=== PATIENT | male | born 2005 | race Two or more races ===

== ENCOUNTER 2024-03-09 15:56 | Inpatient (IN) | payer OTHER ==
[2024-03-08 00:44] VITALS: BP 118/62; PULSE 46; RESP 17; TEMP 97.7; O2SAT 98
[~2024-03-09] VITALS: Ht 175.3 cm; Wt 73.7 kg
[2024-03-09 16:20] VITALS: PULSE 51; RESP 13; O2SAT 98
[2024-03-09 16:22] LABS: Basophils # (auto) 0 10 ^3/uL (0-0.2); Basophils % (auto) 0.5 % (0.0-2.0); Eosinophils # (auto) 0 10 ^3/uL (0-0.8); Eosinophils % (auto) 0.9 % (0.0-7.0); Hematocrit 47.9 % (41.0-53.0); Hemoglobin 15.8 g/dL (13.5-17.5); Lymphocytes # (auto) 1.6 10 ^3/uL (0.4-5.4); Lymphocytes % (auto) 34.7 % (10.0-50.0); Mean Corpuscular Hemoglobin 28.6 pg (28.0-32.0); Mean Corpuscular Hgb Conc. 33.1 g/dL (32.0-36.0); Mean Corpuscular Volume 86.5 fL (80.0-100.0); Monocytes # (auto) 0.5 10 ^3/uL (0-1.3); Monocytes % (auto) 10.4 % (0.0-12.0); Neutrophils # (auto) 2.5 10 ^3/uL (1.6-8.6); Neutrophils % (auto) 53.5 % (37.0-80.0); Nucleated Red Blood Cells % 0.2 %; Platelet Count (auto) 202 10^3/uL (140-450); Red Blood Cells 5.54 10^6/uL (4.5-5.90); Red Cell Distribution Width 12.7 % (11.8-14.3); White Blood Cell 4.6 10^3/uL (4.4-10.8)
--- NOTE | 2024-03-09 16:37 | ED.PDOC ---
SOB-HPI HPI Comments 19 year old male brought in by EMS from [facility] presents to the ED with chief complaint of chest pain. Patient reports that he was suffering from a viral illness last week with cough, nasal congestion, and fever when today he had experience substernal chest pain and a syncopal episode. Patient relays that he had a chest XR performed at [facility] and was found to have pneumonia and possible pericarditis. Patient states he was then transferred here for higher level of care. Patient denies any fever, chills, N/V/D, dizziness, abdominal pain, headache, or SOB. Chief Complaint: Chest Pain Time Seen by MD: 16:34 Reviewed notes: Nurses Notes, Medical Records Tech Notes, Medications, Allergies Information Source: Patient, Emergency Med Personnel Mode of Arrival: EMS Severity: Moderate Timing: Hours Duration: Since onset Context: At Rest PE Risk Factors: None History of: None Prehospital treatment: None Modifying Factors: Nothing Associated Signs and Symptoms: Cough, Nasal Congestion, Chest Pain, Other (Syncope) Quality: Aching Radiation: No Radiation Location: Substernal Past Medical History PAST MEDICAL HISTORY: Denies Surgical History: Denies all surgeries Family History Family History: Reviewed,noncontributory to illness Social History Smoker: Non-Smoker Alcohol: Denies ETOH Use Drugs: Denies Drug Use Lives In: Home Constitutional: denies: chills, diaphoresis, fatigue, fever, malaise, sweats, weakness, others EENTM: reports: nose congestion; denies: blurred vision, double vision, ear bleeding, ear discharge, ear drainage, ear pain, ear ringing, eye pain, eye redness, hearing loss, mouth pain, mouth swelling, nasal discharge, nose bleeding, nose pain, photophobia, tearing, throat pain, throat swelling, voice changes, others Respiratory: reports: cough; denies: hemoptysis, orthopnea, SOB at rest, shortness of breath, SOB with excertion, stridor, wheezing, others Cardiovascular: reports: chest pain, syncope; denies: dizzy spells, diaphoresis, Dyspnea on exertion, edema, irregular heart beat, left arm pain, l ightheadedness, palpitations, PND, others Gastrointestinal: denies: abdomen distended, abdominal pain, blood streaked bowels, constipated, diarrhea, dysphagia, difficulty swallowing, hematemesis, melena, nausea, poor appetite, poor fluid intake, rectal bleeding, rectal pain, vomiting, others Genitourinary: denies: burning, dysuria, flank pain, frequency, hematuria, incontinence, penile discharge, penile sore, pain, testicle pain, testicle swelling, urgency, others Neurological: denies: dizziness, fainting, headache, left sided numbness, left sided weakness, numbness, paresthesia, pre-existing deficit, right sided numbness, right sided weakness, seizure, speech problems, tingling, tremors, weakness, others Musculoskeletal: denies: back pain, gout, joint pain, joint swelling, muscle pain, muscle stiffness, neck pain, others Integumetry: denies: bruises, change in color, change in hair/nails, dryness, laceration, lesions, lumps, rash, wounds, others Allergic/Immunocompromised: denies: Difficulty Healing, Frequent Infections, Hives, Itching, others Hematologic/Lymphatic: denies: anemia, blood clots, easy bleeding, easy bruising, swollen glands, others Endocrine: denies: excessive hunger, excessive sweating, excessive thirst, excessive urination, flushing, intolerance to cold, intolerance to heat, unexplained weight gain, unexplained weight loss, others Psychiatric: denies: anxiety, bipolar disorder, depression, hopeless, panic disorder, schizophrenia, sleepless, suicidal, others All Other Systems: Reviewed and Negative Physical Exam General Appearance: No Apparent Distress, Normal HEENT: Normal ENT Inspection, PERRL/EOMI Neck: Full Range of Motion, Non-Tender, Normal, Normal Inspection Respiratory: Chest Non-Tender, Lungs Clear, No Accessory Muscle Use, No Respiratory Distress, Normal Breath Sounds Cardiovascular: No Edema, No JVD, No Murmur, No Gallop, Normal Peripheral Pulses, Regular Rate/Rhythm Breast Exam: Deferred Gastrointestinal: No Organomegaly, Non Tender, No Pulsatile Mass, Normal Bowel Sounds, Soft Genitalia: Deferred Pelvic: Deferred Rectal: Deferred Extremities: No calf tenderness, Normal capillary refill, Normal inspection, Normal range of motion, Non-tender, No pedal edema Musculoskeletal : Apperance: Normal Neurologic: Alert, child care associate II-XII nml as Tested, No Motor Deficits, Normal Affect, Normal Mood, No Sensory Deficits Cerebellar Function: Normal Reflexes: Normal Skin: Dry, Normal Color, Warm Lymphatic: No Adenopathy Was a procedure done? Was a procedure done?: No Differential Dx Differential Diagnosis: Hypertension, Pneumonia, Sinusitis X-Ray, Labs, Meds, VS Vital Signs Date Time Temp Pulse Resp B/P (MAP) Pulse Ox O2 Delivery O2 Flow Rate FiO2 03/09/24 16:54 51 03/09/24 16:20 98.7 51 13 117/69 (85) 98 98.7 03/09/24 16:20 51 13 98 Room Air* 0 21 03/09/24 15:59 57 03/09/24 15:56 98.7 65 18 117/68 (84) 98 03/09/24 15:56 Room Air* 0 21 Lab Test 03/09/24 17:00 03/09/24 16:07 Range/Units Sodium Level 140 136-145 mmol/L Potassium Level 4.6 3.5-5.1 mmol/L Chloride Level 107 98-107 mmol/L Carbon Dioxide Level 28 20-31 mmol/L Anion Gap 5 5-15 Blood Urea Nitrogen 10 9-23 mg/dL Creatinine 1.10 0.700-1.30 mg/dL Glomerular Filtration Rate Calc 98 >90 mL/min BUN/Creatinine Ratio 9.1 L 10.0-20.0 Serum Glucose 83 74-106 mg/dL Calcium Level 9.9 8.7-10.4 mg/dL White Blood Count 4.6 4.4-10.8 10^3/uL Red Blood Count 5.54 4.5-5.90 10^6/uL Hemoglobin 15.8 13.5-17.5 g/dL Hematocrit 47.9 41.0-53.0 % Mean Corpuscular Volume 86.5 80.0-100.0 fL Mean Corpuscular Hemoglobin 28.6 28.0-32.0 pg Mean Corpuscular Hemoglobin Concent 33.1 32.0-36.0 g/dL Red Cell Distribution Width 12.7 11.8-14.3 % Platelet Count 202 140-450 10^3/uL Mean Platelet Volume 7.0 6.9-10.8 fL Neutrophils (%) (Auto) 53.5 37.0-80.0 % Lymphocytes (%) (Auto) 34.7 10.0-50.0 % Monocytes (%) (Auto) 10.4 0.0-12.0 % Eosinophils (%) (Auto) 0.9 0.0-7.0 % Basophils (%) (Auto) 0.5 0.0-2.0 % Neutrophils # (Auto) 2.5 1.6-8.6 10 ^3/uL Lymphocytes # (Auto) 1.6 0.4-5.4 10 ^3/uL Monocytes # (Auto) 0.5 0-1.3 10 ^3/uL Eosinophils # (Auto) 0 0-0.8 10 ^3/uL Basophils # (Auto) 0 0-0.2 10 ^3/uL Nucleated Red Blood Cells 0.2 % Erythrocyte Sedimentation Rate Pending Troponin I High Sensitivity < 3 L </=54 ng/L C-Reactive Protein High Sensitivity < 0.02 <1.0 mg/dL Current Medications Medications (Trade) Dose Ordered Sig/Sky Route Start Time Stop Time Status Last Admin Colchicine (Colcrys) 1.2 mg ONCE ONCE PO 03/09/24 17:00 03/09/24 17:02 DC 03/09/24 17:17 Ketorolac Tromethamine (Toradol Injection) 15 mg ONCE ONCE IV 03/09/24 17:00 03/09/24 17:02 DC 03/09/24 17:17 Chest XR: FINDINGS: Lines and Tubes: None Lungs: Right perihilar fullness which may be from slight image rotation . Pleura: No effusion. No pneumothorax. Cardiomediastinal contours: Unremarkable Bones: No acute osseous abnormality. IMPRESSION: Right perihilar fullness which may be from slight image rotation. CT may be considered for further evaluation if clinically indicated. Images Reviewed?: Images reviewed and evaluated by me Time of 1ST Reevaluation: 17:34 Reevaluation 1ST: Unchanged Patient Education/Counseling: Diagnosis, Treatment Family Education/Counseling: No Family Present Departure 1 Departure Time of Disposition: 18:09 (Patient presented with chest pain that was concerning for possible STEMI, ACS, PE, Pneumonia, Muscle Strain, COPD, Dissection. Data: 1. I ordered and reviewed the result of at least 3 labs incl uding a CBC, BMP, and Troponin. 2. I independently interpreted the following tests: EKG which shows concern for pericarditis versus myocarditis and Chest X- ray which shows some collection.Risk:This patient has a high risk of morbidity due to further diagnostic testing or treatment and may suffer from an acute cardiac or respiratory disorder. Workup reveals concern for chest pain and patient should be admitted for further workup and possible expert consultation. ) Impression: Primary Impression: Chest pain Qualified Codes: R07.9 - Chest pain, unspecified Additional Impression: Weakness Disposition: ADMITTED INPATIENT Admit to: Med Surg Condition: Serious Critical Care Note Critical Care Time?: Yes Critical care comment: Active chest pain Authorized and Performed by: Jr Contreras MD Total critical care time: Approximately 38 minutes Due to a high probability of clinically significant, life threatening dete rioration, the patient required my highest level of preparedness to intervene emergently and I personally spent this critical care time directly and personally managing the patient. This critical care time included obtaining a history; examining the patient; pulse oximetry; ordering and review of studies; arranging urgent treatment with development of a management plan; evaluation of patient's response to treatment; frequent reassessment; and, discussions with other providers. This critical care time was performed to assess and manage the high probability of imminent, life-threatening deterioration that could result in multi-organ f ailure. It was exclusive of separately billable procedures and treating other patients and teaching time. Please see my other sections and the rest of the note for further information on patient assessment and treatment. Stability Stability form required: No Heart Score Heart Score: Heart Score Response (Comments) Value History N/A 0 EKG N/A 0 Age N/A 0 Risk Factors N/A 0 Troponin N/A 0 Total 0 I personally scribed for JR CONTRERAS MD ([email or web address]) on 03/09/24 at 16:37. Electronically submitted by Sam Lloyd ([email or web address]). I personally scribed for JR CONTRERAS MD ([email or web address]) on 03/09/24 at 17:00. Electronically submitted by Sam Lloyd ([email or web address]). JR CONTRERAS MD Mar 09, 2024 16:37
--- NOTE | 2024-03-09 16:52 | DVH ---
CHEST RADIOGRAPH Indication:chest pain and sob Technique: Single frontal view of the chest was obtained Comparison: None FINDINGS: Lines and Tubes: None Lungs: Right perihilar fullness which may be from slight image rotation . Pleura: No effusion. No pneumothorax. Cardiomediastinal contours: Unremarkable Bones: No acute osseous abnormality. IMPRESSION: Right perihilar fullness which may be from slight image rotation. CT may be considered for further ev aluation if clinically indicated.
[2024-03-09 17:16] LABS: Chloride 107 mmol/L (98-107); Sodium 140 mmol/L (136-145)
[2024-03-09] MEDS: KETOROLAC TROMETH 30 MG/ML 1ML VIAL IV ONE (17:17)
[2024-03-09] MEDS: COLCHICINE 0.6 MG CAP PO ONE (17:17)
[2024-03-09 17:19] LABS: Anion Gap 5 (5-15); Calcium 9.9 mg/dL (8.7-10.4); Carbon Dioxide 28 mmol/L (20-31)
[2024-03-09 17:20] LABS: Potassium 4.6 mmol/L (3.5-5.1)
[2024-03-09 17:24] LABS: Glucose 83 mg/dL (74-106)
[2024-03-09 17:26] LABS: BUN/Creatinine Ratio 9.1 (10.0-20.0); Blood Urea Nitrogen 10 mg/dL (9-23)
[2024-03-09 18:15] LABS: Erythrocyte Sedimentation Rate 2 mm/hr (0-20)
[2024-03-09 19:30] VITALS: PULSE 54; RESP 14; O2SAT 97
--- NOTE | 2024-03-09 19:39 | ECG ---
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
[2024-03-09] MEDS ORDERED: HYDROcodone-ACET 5/325MG TAB PO PRN (21:30)
[2024-03-09] MEDS ORDERED: ACETAMINOPHEN 325 MG TAB PO PRN (21:30)
[2024-03-09] MEDS ORDERED: ONDANSETRON HCL 4 MG/2 ML VIAL IV PRN (21:30)
--- NOTE | 2024-03-09 22:16 | DVHHPRES ---
History of Present Illness Resident Creating Document: PATRICA RAMOS RESIDENT History of Present Illness This is a 19 year old male brought in by EMS from [facility] presented to the ED with chief complaint of chest pain. Patient reports that he was suffering from a viral illness last week with cough, nasal congestion, and fever . Yesterday he started having substernal chest pain and could not able to breath and had a syncopal episode with loss of consciousness less than 45 seconds according to the without any incontinence. He went to the ER and had a chest XR performed at [facility] and was found to have pneumonia and possible pericarditis. Patient states he was then transferred here for higher level of care. Patient denies any fever, chills, N/V/D, dizziness, abdominal pain, headache. Past Medical History No significant past medical history Past Surgical History None Family History No significant family history of heart disease, cancer or any other genetic disease Smoke: No ALCOHOL: none Drugs: None Lives: with Family Review of Systems Constitutional: No: Fever, Chills, Sweats, Weakness, Malaise, Other Eyes: No: Pain, Vision change, Conjunctivae inflammation, Eyelid inflammation, Other, Redness ENT: No: Ear pain, Ear discharge, Nose pain, Nose discharge, Nose congestion, Mouth pain, Mouth swelling, Throat pain, Throat swelling, Other Respiratory: Shortness of breath; No: Cough, Dry, SOB with excertion, Wheezing, Hemoptysis, Pleuritic Pain, Sputum, Wheezing, Other Cardiovascular: Chest Pain, Lt Headedness; No: Palpitations, Orthopnea, Paroxysmal Noc. Dyspnea, Edema, Other Gastrointestinal: No: Nausea, Vomiting, Abdominal Pain, Diarrhea, Constipation, Melena, Hematochezia, Other Genitourinary: No Dysuria, No Frequency, No Incontinence, No Hematuria, No Retention, No Other Musculoskeletal: No: other, neck pain, shoulder pain, arm pain, back pain, hand pain, leg pain, foot pain Skin: No: Rash, Lesions, Jaundice, Bruising, Other Neurological: No: Weakness, Numbness, Incoordination, Change in speech, Confusion, Seizures, Other Allergies: Coded Allergies: Lactose Intolerance (GI) (Verified Allergy, Unknown, 03/10/24) Medications Current Medications Medications Dose Ordered Sig/Sky Route Start Time Stop Time Status Last Admin Dose Admin Sodium Chloride 10 ml Q8HR IV 10/29/24 22:00 Acetaminophen 325 mg Q4HP PRN PO 03/09/24 21:30 Acetaminophen/ Hydrocodone Bitart 1 tab Q4HP PRN PO 03/09/24 21:30 Ondansetron HCl 4 mg Q4HP PRN IV 03/09/24 21:30 Nitroglycerin 0.4 mg Q5MINP PRN SL 03/09/24 21:30 Morphine Sulfate 2 mg Q30M PRN IV 03/09/24 21:30 Exam Vital Signs Vital Signs Date Time Temp Pulse Resp B/P (MAP) Pulse Ox O2 Delivery O2 Flow Rate FiO2 03/09/24 19:30 97.8 54 14 123/61 (81) 97 97.8 03/09/24 19:30 Room Air* 0 21 General Appearance: Alert, Oriented X3, Cooperative, mild distress HEENT: Atraumatic, PERRLA, EOMI, Mucous membr. moist/pink Respiratory: Clear to auscultation, Normal air movement Cardiovascular: Regular rate, Normal S1, Normal S2, No murmurs Abdominal: Normal bowel sounds, Soft, No tenderness, No hepatospenomegaly, No masses Extremities: No clubbing, No cyanosis, No edema, Normal pulses, No tenderness/swelling Skin: No rashes, No breakdown, No significant lesion Neuro: Normal gait, Normal speech, Strength at 5/5 X4 ext, Normal tone, Sensation intact Psych/Mental Status: Mental status NL, Mood NL Labs/Xrays Labs Test 03/09/24 21:47 03/09/24 17:00 03/09/24 16:07 Range/Units Sodium Level 140 136-145 mmol/L Potassium Level 4.6 3.5-5.1 mmol/L Chloride Level 107 98-107 mmol/L Carbon Dioxide Level 28 20-31 mmol/L Anion Gap 5 5-15 Blood Urea Nitrogen 10 9-23 mg/dL Creatinine 1.10 0.700-1.30 mg/dL Glomerular Filtration Rate Calc 98 >90 mL/min BUN/Creatinine Ratio 9.1 L 10.0-20.0 Serum Glucose 83 74-106 mg/dL Calcium Level 9.9 8.7-10.4 mg/dL White Blood Count 4.6 4.4-10.8 10^3/uL Red Blood Count 5.54 4.5-5.90 10^6/uL Hemoglobin 15.8 13.5-17.5 g/dL Hematocrit 47.9 41.0-53.0 % Mean Corpuscular Volume 86.5 80.0-100.0 fL Mean Corpuscular Hemoglobin 28.6 28.0-32.0 pg Mean Corpuscular Hemoglobin Concent 33.1 32.0-36.0 g/dL Red Cell Distribution Width 12.7 11.8-14.3 % Platelet Count 202 140-450 10^3/uL Mean Platelet Volume 7.0 6.9-10.8 fL Neutrophils (%) (Auto) 53.5 37.0-80.0 % Lymphocytes (%) (Auto) 34.7 10.0-50.0 % Monocytes (%) (Auto) 10.4 0.0-12.0 % Eosinophils (%) (Auto) 0.9 0.0-7.0 % Basophils (%) (Auto) 0.5 0.0-2.0 % Neutrophils # (Auto) 2.5 1.6-8.6 10 ^3/uL Lymphocytes # (Auto) 1.6 0.4-5.4 10 ^3/uL Monocytes # (Auto) 0.5 0-1.3 10 ^3/uL Eosinophils # (Auto) 0 0-0.8 10 ^3/uL Basophils # (Auto) 0 0-0.2 10 ^3/uL Nucleated Red Blood Cells 0.2 % Erythrocyte Sedimentation Rate 2 0-20 mm/hr C-Reactive Protein High Sensitivity < 0.02 <1.0 mg/dL Assessment/Plan Assessment/Plan Assessment and plan: # Chest pain rule out ACS - Admitted the patient in telemetry - EKG revealed widespread ST elevation and troponins are unremarkable - Ordered echo # Chest pain likely due to pericarditis, rule out pneumonia - Recent history of flu-like illness and EKG revealed widespread ST elevation - CRP and ESR are normal - Colchicine 0.6 mg p.o. b.i.d. - Ordered CT scan of the chest without contrast # Vitamin D deficiency - Vitamin D 93114 units Q 7D Goal of care discussed with the patient for more than 17 minutes full code Plan of treatment discussed with Dr. Carter Plan discussed with: Patient, Other My Orders Orders - PATRICA RAMOS RESIDENT Procedure Category Date Status Time Admit ADMIT 03/09/24 Transmitted 21:27 Allergies TALI 03/09/24 In Process 21:27 Code Status CODE 03/09/24 Transmitted 21:27 Sodium Chloride Lock PHA 03/09/24 In Process (Saline Lock Ns) 22:00 Oxygen Per Hour RT 03/09/24 Transmitted 21:27 Acetaminophen Tablet PHA 03/09/24 In Process (Tylenol Tablet) 21:30 Hydrocodone-Acet PHA 03/09/24 In Process 5/325mg Tab (Hamer 21:30 Ondansetron Hcl PHA 03/09/24 In Process (Zofran) 21:30 Complete Blood Count LAB 03/10/24 Verified 04:00 Comprehensive LAB 03/10/24 Verified Metabolic Panel 04:00 Echo 2d Mode Cardiac US 03/09/24 Logged DOP 21:27 Nitroglycerin PHA 03/09/24 In Process Sublingual (Ntrostat 21:30 Morphine Sulfate PHA 03/09/24 In Process Injection 21:30 Oxygen By Nasal RT 03/09/24 Transmitted Cannula 21:27 Stat Ekg For Chest TALI 03/09/24 In Process Pain 21:27 Notify Md Of Changes TALI 03/09/24 In Process From Base 21:27 Wardrobe Assistant For BANNER 03/09/24 In Process 24 Hours 21:27 Emergency Dysrhythmia BANNER 03/09/24 In Process Protocol 21:27 Rhythm Strips Once BANNER 03/09/24 In Process Every Shift 21:27 Thyroid Stimulating LAB 03/09/24 Verified Hormone 22:14 Urinalysis LAB 03/09/24 Verified 22:14 Drug Screen LAB 03/09/24 Verified 22:14 Vitamin B12 LAB 03/09/24 Verified 22:14 Vitamin D, 25-Hydroxy LAB 03/09/24 Verified 22:14 Date of Service: Mar 09, 2024 Billing Provider: PRANAY CARTER MD Common Visit Codes: [id number] INP/OBS CARE (HIGH) PATRICA RAMOS RESIDENT Mar 09, 2024 22:15 PRANAY CARTER MD Mar 10, 2024 08:59
[2024-03-09] MEDS: SODIUM CHLOR 0.9% PF (SALINE LOCK) 10ML VIAL/SYR IV SCH (23:35)
[2024-03-10] VITALS (10 sets, daily range): BP systolic 105–118; BP diastolic 47–72; PULSE 46–82; RESP 15–20; TEMP 97.6–97.8; O2SAT 96–99
[2024-03-10 03:04] LABS: Urine Bacteria None Seen /hpf (None Seen)
[2024-03-10 03:26] LABS: Amphetamine Screen, Urine Neg (NEGATIVE); Barbiturate Scree,Urine Neg (NEGATIVE); Benzodiazephine Screen, Urine Neg (NEGATIVE); Cannabinoid Screen, Urine Pos (NEGATIVE); Cocaine Screen, Urine Neg (NEGATIVE); Opiate Scree,Urine Neg (NEGATIVE); Phencyclidine Screen, Urine Neg (NEGATIVE)
[2024-03-10 03:36] LABS: Urine Blood Negative /uL (Negative); Urine Clarity Clear (Clear); Urine Color Yellow (Yellow); Urine Mucus FEW (None Seen); Urine Protein, UAD TRACE (Negative); Urine Specific Gravity 1.036 (1.001-1.035); Urine Urobilinogen 3 mg/dL (Negative); Urine WBC 1 /hpf (0 - 3)
[2024-03-10 03:53] LABS: COVID19 ANTIGEN SOFIA FIA NEGATIVE (NEGATIVE)
[2024-03-10 03:54] LABS: Rapid Influenza A Negative (Negative); Rapid Influenza B Negative (Negative)
[2024-03-10 05:38] LABS: Alanine Aminotransferase 16 U/L (7-40); Albumin 3.8 g/dL (3.2-4.8); Alkaline Phosphatase 63 U/L (46-116); Anion Gap 7 (5-15); Aspartate Aminotransferase 10 U/L (13-40); BUN/Creatinine Ratio 12.3 (10.0-20.0); Bilirubin, Total 0.8 mg/dL (0.2-1.0); Blood Urea Nitrogen 13 mg/dL (9-23); Calcium 9.6 mg/dL (8.7-10.4); Carbon Dioxide 25 mmol/L (20-31); Chloride 110 mmol/L (98-107); Glucose 87 mg/dL (74-106); Potassium 3.8 mmol/L (3.5-5.1); Sodium 142 mmol/L (136-145); Total Protein 6.4 g/dL (5.7-8.2)
[2024-03-10 05:43] LABS: Basophils # (auto) 0 10 ^3/uL (0-0.2); Basophils % (auto) 0.4 % (0.0-2.0); Eosinophils # (auto) 0 10 ^3/uL (0-0.8); Eosinophils % (auto) 0.8 % (0.0-7.0); Hematocrit 44.5 % (41.0-53.0); Hemoglobin 14.3 g/dL (13.5-17.5); Lymphocytes # (auto) 2.5 10 ^3/uL (0.4-5.4); Lymphocytes % (auto) 47.3 % (10.0-50.0); Mean Corpuscular Hgb Conc. 32.2 g/dL (32.0-36.0); Mean Corpuscular Volume 86.9 fL (80.0-100.0); Monocytes # (auto) 0.5 10 ^3/uL (0-1.3); Monocytes % (auto) 9.5 % (0.0-12.0); Neutrophils # (auto) 2.2 10 ^3/uL (1.6-8.6); Nucleated Red Blood Cells % 0.1 %; Platelet Count (auto) 206 10^3/uL (140-450); Red Blood Cells 5.12 10^6/uL (4.5-5.90); Red Cell Distribution Width 12.3 % (11.8-14.3); White Blood Cell 5.3 10^3/uL (4.4-10.8)
--- NOTE | 2024-03-10 07:11 | ECG ---
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
--- NOTE | 2024-03-10 08:57 | DVH ---
Procedure: CT CHEST WITHOUT CONTRAST Reason for study/Clinical History: Pneumonia Comparison Study: None available at time of dictation. Exam Date: 03/10/2024 08:23 AM TECHNIQUE: Multidetector CT of the chest was performed from the lung apices to the upper abdomen with out the use of intravenous contract. Axial, coronal and sagittal multiplanar reformats were performed . Radiation Dose Information: CT Dose: CTDI volume is 6.52 mGy. Dose-length product is 249.08 mGy*cm The dose indicators for CT are the volume Computed Tomography (CT) Dose Index (CTDIvol) and the Dose Length Product (DLP), and are measured in units of mGy and mGy-cm, respectively. These indicators are not patient dose, but values generated from the CT scanner acquisition factors. The report includes radiation exposure data for exposures received during this examination. FINDINGS: Lower neck: Normal thyroid. Lungs: No focal consolidation, pleural effusion or pneumothorax. Heart/Vascular Structures: Normal heart size. No pericardial effusion. Lymph Nodes: No adenopathy Pleura: No pleural effusion or significant pneumothorax. Musculoskeletal: Levoscoliosis of the upper thoracic spine Soft tissues: Normal. Upper abdomen: Limited portions of the upper abdomen are unremarkable. IMPRESSION: 1. No acute intrathoracic abnormality. Radiation optimization: All CT scans at this facility use at least one of these dose optimization miguel hniques: automated exposure control mA and/or kV adjustment per patient size (includes targeted exam s where dose is matched to clinical indication) or iterative reconstruction. HS:Y
[2024-03-10] MEDS ORDERED: ERGOCALCIFEROL 50,000 UNIT(1.25MG) CAP PO SCH (10:00)
[2024-03-10] MEDS: ERGOCALCIFEROL 50,000 UNIT(1.25MG) CAP PO SCH ×2 (11:00)
[2024-03-10] MEDS: COLCHICINE 0.6 MG CAP PO SCH (11:00)
[2024-03-10] MEDS: PANTOPRAZOLE 40 MG TAB PO ONE (16:05)
--- NOTE | 2024-03-10 19:00 | DVHPNRES ---
Progress Note Date Seen: Mar 10, 2024 Resident Creating Document: ANGELICA JOSHI FERMIN Has the PT tested + for MRSA If YES, has PT been informed?: No Medical Necessity Reason Pt with a Central, PICC or Fol: No Subjective Review of Systems This is a 19 year old male brought in by EMS from [facility] presented to the ED with chief complaint of chest pain. Patient reports that he was suffering from a viral illness last week with cough, nasal congestion, and fever . Yesterday he started having substernal chest pain and could not able to breath and had a syncopal episode with loss of consciousness less than 45 seconds according to the without any incontinence. He went to the ER and had a chest XR performed at [facility] and was found to have pneumonia and possible pericarditis. Patient states he was then transferred here for higher level of care. Patient denies any fever, chills, N/V/D, dizziness, abdominal pain, headache. PMHx: Not significant PSHx: Outside Family history: Not significant Social history: Lives at home with thiamine, denies smoking, drink occasionally and denies any other drug use Home medication: Nil Allergic history: Lactulose intolerance Patient seen and examined at the bedside. Patient is feeling better since admission. Patient has mild chest pain which increased on the lying and decreased upon sitting. Patient reports: No new complaints, Feels better Changes from previous H/P or p: Changes Objective vital signs Vital Sign Date Time Temp Pulse Resp B/P (MAP) Pulse Ox O2 Delivery O2 Flow Rate FiO2 03/10/24 16:56 97.7 54 16 105/54 (71) 98 97.7 03/10/24 08:20 Room Air* 0 21 Total Intake and Output 03/09/24 03/09/24 03/10/24 15:00 23:00 07:00 Intake Total 225 ml Balance 225 ml medications Current Medications Medications Dose Ordered Sig/Sky Route Start Time Stop Time Status Last Admin Dose Admin Sodium Chloride 10 ml Q8HR IV 03/09/24 22:00 03/10/24 14:00 10 ML Acetaminophen 325 mg Q4HP PRN PO 03/09/24 21:30 Acetaminophen/ Hydrocodone Bitart 1 tab Q4HP PRN PO 03/09/24 21:30 Ondansetron HCl 4 mg Q4HP PRN IV 03/09/24 21:30 Nitroglycerin 0.4 mg Q5MINP PRN SL 03/09/24 21:30 Morphine Sulfate 2 mg Q30M PRN IV 03/09/24 21:30 Colchicine 0.6 mg Q12HR PO 03/10/24 10:00 03/10/24 11:00 0.6 MG Ergocalciferol 50,000 unit Q7D PO 03/10/24 08:30 Ibuprofen 600 mg TID PO 03/10/24 22:00 Pantoprazole Sodium 40 mg DAILY@0600 PO 03/11/24 06:00 Examination General Appearance: Alert, Oriented X3, Cooperative, No acute distress HEENT: Atraumatic, PERRLA, EOMI, Mucous membrane moist/pink Respiratory: Clear to auscultation, Normal air movement Cardiovascular: Regular rate, Normal S1, Normal S2, No murmurs, no chest wall tenderness Abdominal: Normal bowel sounds, Soft, No tenderness, No hepatospenomegaly, No masses Extremities: No clubbing, No cyanosis, No edema, Normal pulses, No tenderness/swelling Skin: No rashes, No breakdown, No significant lesion laboratory and microbiology Laboratory Tests 03/10/24 04:38 Test 03/10/24 04:38 Range/Units Serum Glucose 87 74-106 mg/dL Microbiology Date/Time Source Procedure Growth Status 03/10/24 01:30 Nose MRSA Screen - Final Complete Labs and/or images reviewed: Labs reviewed by me, Image(s) reviewed by me Problem List/Assessment/Plan Problem List/Assessment/Plan Chest pain, rule out ACS ?Pericarditis EKG shows sinus bradycardia Troponin I is within normal limits Echocardiogram Telemetry CRP and ESR are normal Colchicine 0.6 mg p.o. b.i.d. Ibuprofen 600 mg t.i.d. Vitamin-D deficiency Supplement Hyperchloremia Monitoring Vitamin B12 deficiency Supplement Diet Regular DVT prophylaxis Patient is ambulatory, no anticoagulant is required Peptic ulcer prevention Patient is on NSAIDs Protonix 40 mg daily Code status Full Code Case discussed with Dr. Carter Plan discussed with: Patient Date of Service: Mar 10, 2024 Billing Provider: PRANAY CARTER MD Common Visit Codes: [id number] INP/OBS CARE(HIGH) VEGAKAYLAVEGA WALLACEDorothy RESDIENT Mar 10, 2024 19:00 PRANAY CARTER MD Mar 11, 2024 08:58
[2024-03-10] MEDS: IBUPROFEN 600 MG TAB PO SCH (22:04)
[2024-03-11] VITALS (7 sets, daily range): BP systolic 113–131; BP diastolic 57–76; PULSE 51–98; RESP 18–19; TEMP 97.5–98.2; O2SAT 92–98
[2024-03-11] MEDS: MORPHINE SULFATE INJ 2 MG/ml SYRG IV PRN (05:17)
[2024-03-11] MEDS: ASPirin 325 MG TAB PO ONE (06:10)
[2024-03-11] MEDS: NITROGLYCERIN 0.4 MG SL TAB SL PRN (06:13)
[2024-03-11] MEDS: PANTOPRAZOLE 40 MG TAB PO SCH (06:51)
[2024-03-11 07:01] LABS: Basophils # (auto) 0 10 ^3/uL (0-0.2); Basophils % (auto) 0.4 % (0.0-2.0); Eosinophils # (auto) 0 10 ^3/uL (0-0.8); Eosinophils % (auto) 0.7 % (0.0-7.0); Hematocrit 45.8 % (41.0-53.0); Hemoglobin 15.1 g/dL (13.5-17.5); Lymphocytes # (auto) 2.2 10 ^3/uL (0.4-5.4); Lymphocytes % (auto) 41.7 % (10.0-50.0); Mean Corpuscular Hemoglobin 28.6 pg (28.0-32.0); Mean Corpuscular Hgb Conc. 33.1 g/dL (32.0-36.0); Mean Corpuscular Volume 86.5 fL (80.0-100.0); Monocytes # (auto) 0.5 10 ^3/uL (0-1.3); Monocytes % (auto) 9.2 % (0.0-12.0); Neutrophils # (auto) 2.5 10 ^3/uL (1.6-8.6); Nucleated Red Blood Cells % 0.3 %; Platelet Count (auto) 198 10^3/uL (140-450); Red Blood Cells 5.29 10^6/uL (4.5-5.90); Red Cell Distribution Width 12.1 % (11.8-14.3); White Blood Cell 5.2 10^3/uL (4.4-10.8)
[2024-03-11 07:19] LABS: Alanine Aminotransferase 19 U/L (7-40); Alkaline Phosphatase 69 U/L (46-116); Anion Gap 9 (5-15); Aspartate Aminotransferase 15 U/L (13-40); BUN/Creatinine Ratio 13.8 (10.0-20.0); Bilirubin, Total 0.9 mg/dL (0.2-1.0); Blood Urea Nitrogen 15 mg/dL (9-23); Calcium 9.7 mg/dL (8.7-10.4); Carbon Dioxide 26 mmol/L (20-31); Chloride 107 mmol/L (98-107); Glucose 83 mg/dL (74-106); Potassium 3.9 mmol/L (3.5-5.1); Sodium 142 mmol/L (136-145)
[2024-03-11 07:20] LABS: Total Protein 6.7 g/dL (5.7-8.2)
--- NOTE | 2024-03-11 10:42 | ECG ---
[facility] Test Date: 2024-03-09 Test Time: 16:54:47 Pat Name: ALTON HOLCOMB Department: ER Room: 0286T B Gender: M [employer] Technician: ALEJANDRO : 2005 Requested By: JR JOYA Order Number: [id number] Reading MD: Marlo Emery Measurements Intervals [place] Rate: 51 P: 27 MT: 175 QRS: 257 QRSD: 88 T: 40 QT: 403 QTc: 372 Interpretive Statements Sinus rhythm Right superior axis Lateral infarct, acute (LAD) Probable anteroseptal infarct, old ST elevation, consider inferior injury Baseline wander in lead(s) V1 Electronically Signed On 03-11-2024 14:55:41 PDT by Marlo Emery Please click the below link to view image of tracing.
--- NOTE | 2024-03-11 11:04 | DVHINCON2 ---
Date Seen: Mar 11, 2024 Referring Physician MD Rubio resident Reason for Consultation Symptomatic bradycardia History of Present Illness This is a 19-year-old male patient who presents to the emergency room with chief complaint of syncopal episode. The patient reports that approximately two weeks ago he was sick with a viral illness. A few days after that he began experiencing chest pain which he describes as provoked by deep inhalation, sharp in nature, left-sided and nonradiating. Approximately five days ago, he reports that while he was in the shower he experienced a syncopal episode. He states that he began feeling hot and lightheaded and the next thing he knew he was being woken up by his girlfriend. The patient reports he went to [facility] where he was diagnosed with pericarditis and pneumonia and was told to follow up with a grease monkey in the outpatient setting. The patient then went back to [facility] on 03/09/24 and was subsequently transported to this facility. Cardiology is now being consulted for symptomatic bradycardia. Initial twelve lead electrocardiogram reveals normal sinus bradycardia with peaked T-waves in anterolateral leads. No AV blocks or pauses noted on electrocardiogram. Serial troponin levels have been negative. The patient denies any past medical history. Past Medical History Denies Past Surgical History Denies Family History: Patient reports no known family medical history. Family History Family history reviewed. Social History Denies the use of tobacco, alcohol or illicit drugs. Toxicology screen positive for cannabinoids. Allergies: Coded Allergies: Lactose Intolerance (GI) (Verified Allergy, Unknown, 03/10/24) Home Meds No Active Prescriptions or Reported Meds Home Meds Denies taking any prescribed medications Current Medications Current Medications Medications (Trade) Dose Ordered Sig/Sky Route PRN Reason Start Time Stop Time Status Last Admin Ibuprofen (Motrin Tablet) 600 mg TID PO 03/10/24 22:00 03/10/24 22:04 Pantoprazole Sodium (Protonix Tablet) 40 mg DAILY@0600 PO 03/11/24 06:00 03/11/24 06:51 Review of Systems Constitutional: No symptom reported Ears, Nose, & Throat: No symptom reported Eyes: No symptom reported Neurological: Syncope Pulmonary/Respiratory: No symptoms reported Cardiovascular: Chest pain Gastrointestinal: No symptom reported Genitourinary: No symptom reported Musculoskeletal: No symptom reported Skin: No symptom reported Psychiatric: No symptom reported Endocrine: No symptom reported Hematologic/Lymphatic: No symptom reported Vital Signs Vital Signs Date Time Temp Pulse Resp B/P (MAP) Pulse Ox O2 Delivery O2 Flow Rate FiO2 03/11/24 09:00 97.5 52 18 113/72 (86) 98 97.5 03/11/24 00:44 Room Air* 0 21 Physical Exam General Appearance: Cooperative. Well-developed. Well-nourished. No acute distress. Pulmonary/Respiratory: Clear, bilateral breaths sounds. Cardiovascular/Chest: Regular rate and rhythm. Peripheral Pulses: 2+ Radial (R). 2+ Radial (L). 2+ Pedal (R). 2+ Pedal (L) Abdominal Exam: Normal bowel sounds. Ankle Exam: Negative ankle edema Lower extremities: Negative lower extremity edema Neuro/Mental Status: A/OX4, coherent. Thoughts/Psych: Normal thought pattern. Appropriate mood and affect. Good judgment and insight. Appearance: No acute distress. Skin Exam: Normal inspection. Normal color. Warm and dry. Labs/Diagnostic Data Labs Test 03/11/24 10:24 03/11/24 06:00 03/10/24 04:38 03/10/24 03:02 Range/Units Troponin I High Sensitivity 5 </=54 ng/L White Blood Count 5.2 4.4-10.8 10^3/uL Red Blood Count 5.29 4.5-5.90 10^6/uL Hemoglobin 15.1 13.5-17.5 g/dL Hematocrit 45.8 41.0-53.0 % Mean Corpuscular Volume 86.5 80.0-100.0 fL Mean Corpuscular Hemoglobin 28.6 28.0-32.0 pg Mean Corpuscular Hemoglobin Concent 33.1 32.0-36.0 g/dL Red Cell Distribution Width 12.1 11.8-14.3 % Platelet Count 198 140-450 10^3/uL Mean Platelet Volume 6.7 L 6.9-10.8 fL Neutrophils (%) (Auto) 48.0 37.0-80.0 % Lymphocytes (%) (Auto) 41.7 10.0-50.0 % Monocytes (%) (Auto) 9.2 0.0-12.0 % Eosinophils (%) (Auto) 0.7 0.0-7.0 % Basophils (%) (Auto) 0.4 0.0-2.0 % Neutrophils # (Auto) 2.5 1.6-8.6 10 ^3/uL Lymphocytes # (Auto) 2.2 0.4-5.4 10 ^3/uL Monocytes # (Auto) 0.5 0-1.3 10 ^3/uL Eosinophils # (Auto) 0 0-0.8 10 ^3/uL Basophils # (Auto) 0 0-0.2 10 ^3/uL Nucleated Red Blood Cells 0.3 % Sodium Level 142 136-145 mmol/L Potassium Level 3.9 3.5-5.1 mmol/L Chloride Level 107 98-107 mmol/L Carbon Dioxide Level 26 20-31 mmol/L Anion Gap 9 5-15 Blood Urea Nitrogen 15 9-23 mg/dL Creatinine 1.09 0.700-1.30 mg/dL Glomerular Filtration Rate Calc 99 >90 mL/min BUN/Creatinine Ratio 13.8 10.0-20.0 Serum Glucose 83 74-106 mg/dL Calcium Level 9.7 8.7-10.4 mg/dL Total Bilirubin 0.9 0.2-1.0 mg/dL Aspartate Amino Transferase (AST) 15 13-40 U/L Alanine Aminotransferase (ALT) 19 7-40 U/L Alkaline Phosphatase 69 46-116 U/L Total Protein 6.7 5.7-8.2 g/dL Albumin 4.0 3.2-4.8 g/dL B-Type Natriuretic Peptide 4.72 0-100 pg/mL Urine Color Yellow Yellow Urine Clarity Clear Clear Urine pH 6.0 5.0-9.0 Urine Specific [place] 1.036 H 1.001-1.035 Urine Protein Trace H Negative Urine Ketones Negative Negative Urine Blood Negative Negative /uL Urine Nitrite Negative Negative Urine Bilirubin Negative Negative Urine Urobilinogen 3 H Negative mg/dL Urine Leukocyte Esterase Negative Negative /uL Urine RBC 1 0 - 3 /hpf Urine WBC 1 0 - 3 /hpf Urine Squamous Epithelial Cells Few <5 /hpf Urine Bacteria None seen None Seen /hpf Urine Mucus Few None Seen Urine Glucose Normal Normal mg/dL Urine Opiates Screen Neg NEGATIVE Urine Fentanyl Screen Neg NEGATIVE Urine Barbiturates Screen Neg NEGATIVE Urine Phencyclidine Screen Neg NEGATIVE Urine Amphetamines Screen Neg NEGATIVE Urine Benzodiazepines Screen Neg NEGATIVE Urine Cocaine Screen Neg NEGATIVE Urine Cannabinoids Screen Pos NEGATIVE Test 03/10/24 01:30 03/09/24 22:42 03/09/24 21:47 03/09/24 16:07 Range/Units Influenza Type A Antigen Negative Negative Influenza Type B Antigen Negative Negative SARS-CoV-2 Antigen (Rapid) Negative NEGATIVE Vitamin B12 Level 495 211-911 pg/mL Vitamin D 25-Hydroxy 25.1 L 30.0-100 ng/mL Thyroid Stimulating Hormone (TSH) 0.66 0.55-4.78 uIU/mL Erythrocyte Sedimentation Rate 2 0-20 mm/hr C-Reactive Protein High Sensitivity < 0.02 <1.0 mg/dL Microbiology Date/Time Source Procedure Growth Status 03/10/24 01:30 Nose MRSA Screen - Final Complete Assessment Sinus bradycardia without AV block or pauses ?Vasovagal episode Recent pericarditis Cannabinoid use Plan/Recommendation We will continue following plan/recommendations (Dr. Villagran): Transthoracic echocardiogram reveals EF 55%. Patient seen and examined at bedside with . Given patient's clinical presentation, patient likely experienced a vasovagal episode when he fainted in the shower. Continuous telemetry monitoring shows sinus bradycardia without any significant AV a block or pauses. We will recommend to consider outpatient event monitor if deemed necessary. Continue pericarditis treatment. There is no further inpatient cardiac workup indicated at this time. Thank you for allowing us to care for this patient. Please call with any questions or concerns. Critical care time spent: 35 minutes This medical document was created using an electronic medical record system with voice recognition software and computerized dictation system. Although this document has been carefully reviewed, there might still be some phonetic and typographical errors. Occasional wrong-word or ``sound-alike substitutions may have occurred due to the inherent limitations of voice recognition software. These areas are purely typographical due to imperfections of the software programs and do not reflect any compromise in the patient's medical care. Please read the chart carefully and recognize, using context, where these substitutions have occurred. Plan discussed with: Patient Date of Service: Mar 11, 2024 Billing Provider: MICAELA VILLAGRAN MD Cardiology Common Codes: [id number] INP/OBS CARE (High) RICHARD HERMAN OFFICE SERVICES MANAGER Mar 11, 2024 11:04
--- NOTE | 2024-03-11 13:51 | DVHSR ---
APPROVED REPORT EXAM: Two-dimensional and M-mode echocardiogram with Doppler and color Doppler. Blood Pressure: 110/71 mmHg INDICATION Chest Pain RISK FACTORS Height: 5' 9", Weight: 227 DIMENSIONS LVDd5.0 (3.8-5.7cm)LA (2D)4.5 (1.9-4.0cm)Aortic Root3.5 (2.0-3.7cm) LVDs3.2 (2.5-4.0cm)LA (MM) (1.9-4.0cm)Aortic Cusp Exc2.0 (1.5-2.0cm) EF (%) 66.0 (55-70%)Rt. Atrium5.4 (1.9-4.0cm)Asc. Aorta cm IVSd1.0 (0.7-1.1cm)RV (D) (1.8-2.4cm) PWd1.0 (0.7-1.1cm) Mitral Valve MitralMitral Stenosis E wave0.90m/sMV Mean GR.mmHg A wave0.50m/sMV Peak GR.mmHg E/A ratio1.82D MVAcm2 Aortic Valve Aortic ValveAortic Stenosis V10.90m/[place] Mean GR.3mmHg V21.20m/[place] Peak GR.6mmHg LVOT Diameter2.3 (1.8-2.4cm)Doppler AVA3.11cm2 Pulmonic Valve V21.30m/s Conclusion Normal left ventricular size and dimension. Normal left ventricular systolic function estimated ejec tion fraction 55%. Normal diastolic function. Normal right ventricular size and dimension. Normal right ventricular systolic function. Normal biatrial size and dimension. Normal aortic valve structure and function. Normal mitral valve structure and function. Normal tricuspid valve structure and function. The pulmonary valve is grossly normal. No pericardial effusion.
[2024-03-11] MEDS ORDERED: ERGO1CAP23 PO (17:56)
[2024-03-11] MEDS ORDERED: IBU600T PO (17:56)
[2024-03-11] MEDS ORDERED: IBUP1TAB4 PO (17:56)
[2024-03-11] MEDS ORDERED: PANT40T PO (17:56)
[2024-03-11] MEDS ORDERED: COLC1CAP PO (17:57)
--- NOTE | 2024-03-11 20:40 | DVHDSRES ---
Discharge Summary Date of Admission Resident Creating Document: ANGELICA JOSHI Mar 09, 2024 at 21:27 Date of Discharge: Mar 11, 2024 Admitting Diagnosis Chest pain to rule out ACS Wounds: Labs/Diagnostic Data: Laboratory Results Test 03/11/24 18:40 03/11/24 06:00 03/10/24 04:38 03/10/24 03:02 Troponin I High Sensitivity 3 ng/L (</=54) White Blood Count 5.2 10^3/uL (4.4-10.8) Red Blood Count 5.29 10^6/uL (4.5-5.90) Hemoglobin 15.1 g/dL (13.5-17.5) Hematocrit 45.8 % (41.0-53.0) Mean Corpuscular Volume 86.5 fL (80.0-100.0) Mean Corpuscular Hemoglobin 28.6 pg (28.0-32.0) Mean Corpuscular Hemoglobin Concent 33.1 g/dL (32.0-36.0) Red Cell Distribution Width 12.1 % (11.8-14.3) Platelet Count 198 10^3/uL (140-450) Mean Platelet Volume 6.7 fL (6.9-10.8) Neutrophils (%) (Auto) 48.0 % (37.0-80.0) Lymphocytes (%) (Auto) 41.7 % (10.0-50.0) Monocytes (%) (Auto) 9.2 % (0.0-12.0) Eosinophils (%) (Auto) 0.7 % (0.0-7.0) Basophils (%) (Auto) 0.4 % (0.0-2.0) Neutrophils # (Auto) 2.5 10 ^3/uL (1.6-8.6) Lymphocytes # (Auto) 2.2 10 ^3/uL (0.4-5.4) Monocytes # (Auto) 0.5 10 ^3/uL (0-1.3) Eosinophils # (Auto) 0 10 ^3/uL (0-0.8) Basophils # (Auto) 0 10 ^3/uL (0-0.2) Nucleated Red Blood Cells 0.3 % Sodium Level 142 mmol/L (136-145) Potassium Level 3.9 mmol/L (3.5-5.1) Chloride Level 107 mmol/L (98-107) Carbon Dioxide Level 26 mmol/L (20-31) Anion Gap 9 (5-15) Blood Urea Nitrogen 15 mg/dL (9-23) Creatinine 1.09 mg/dL (0.700-1.30) Glomerular Filtration Rate Calc 99 mL/min (>90) BUN/Creatinine Ratio 13.8 (10.0-20.0) Serum Glucose 83 mg/dL (74-106) Calcium Level 9.7 mg/dL (8.7-10.4) Total Bilirubin 0.9 mg/dL (0.2-1.0) Aspartate Amino Transferase (AST) 15 U/L (13-40) Alanine Aminotransferase (ALT) 19 U/L (7-40) Alkaline Phosphatase 69 U/L (46-116) Total Protein 6.7 g/dL (5.7-8.2) Albumin 4.0 g/dL (3.2-4.8) B-Type Natriuretic Peptide 4.72 pg/mL (0-100) Urine Color Yellow (Yellow) Urine Clarity Clear (Clear) Urine pH 6.0 (5.0-9.0) Urine Specific [place] 1.036 (1.001-1.035) Urine Protein Trace (Negative) Urine Ketones Negative (Negative) Urine Blood Negative /uL (Negative) Urine Nitrite Negative (Negative) Urine Bilirubin Negative (Negative) Urine Urobilinogen 3 mg/dL (Negative) Urine Leukocyte Esterase Negative /uL (Negative) Urine RBC 1 /hpf (0 - 3) Urine WBC 1 /hpf (0 - 3) Urine Squamous Epithelial Cells Few /hpf (<5) Urine Bacteria None seen /hpf (None Seen) Urine Mucus Few (None Seen) Urine Glucose Normal mg/dL (Normal) Urine Opiates Screen Neg (NEGATIVE) Urine Fentanyl Screen Neg (NEGATIVE) Urine Barbiturates Screen Neg (NEGATIVE) Urine Phencyclidine Screen Neg (NEGATIVE) Urine Amphetamines Screen Neg (NEGATIVE) Urine Benzodiazepines Screen Neg (NEGATIVE) Urine Cocaine Screen Neg (NEGATIVE) Urine Cannabinoids Screen Pos (NEGATIVE) Test 03/10/24 01:30 03/09/24 22:42 03/09/24 21:47 03/09/24 16:07 Influenza Type A Antigen Negative (Negative) Influenza Type B Antigen Negative (Negative) SARS-CoV-2 Antigen (Rapid) Negative (NEGATIVE) Vitamin B12 Level 495 pg/mL (211-911) Vitamin D 25-Hydroxy 25.1 ng/mL (30.0-100) Thyroid Stimulating Hormone (TSH) 0.66 uIU/mL (0.55-4.78) Erythrocyte Sedimentation Rate 2 mm/hr (0-20) C-Reactive Protein High Sensitivity < 0.02 mg/dL (<1.0) Other Laboratory Tests 03/11/24 06:00 Brief Hx & Hospital Course: This is a 19-year-old male brought in by EMS from [facility], presenting to the ED with the chief complaint of chest pain. The patient reports that he was suffering from a viral illness last week with cough, nasal congestion, and fever. Yesterday, he started having substernal chest pain, difficulty breathing, and had a syncopal episode with loss of consciousness for less than 45 seconds, according to his , without any incontinence. He went to the ER and had a chest X-ray performed at [facility], which found pneumonia and possible pericarditis. The patient states he was then transferred here for a higher level of care. The patient denies any fever, chills, N/V/D, dizziness, abdominal pain, or headache. He was admitted for pericarditis and to rule out ACS. Past Medical History: Not significant Past Surgical History: Outside Family History: Not significant Social History: Lives at home with his , denies smoking, drinks occasionally, and denies any other drug use Home Medications: None Allergic History: Lactulose intolerance During hospital admission, the patient was started on pericarditis treatment (colchicine 1.2 mg, 0.6 mg after 1 hour, and then 0.6 mg daily, and ibuprofen 600 mg t.i.d.). ACS was ruled out as serial troponin I levels were within normal limits, EKG did not show any ST or T-wave changes of ischemia, and the echocardiogram was within normal limits. Cardiology evaluated the patient, and a chest scan was within normal limits. On 03/11/2024, the patient was clinically and hemodynamically improved. His pain was improved with colchicine and ibuprofen. The discharge plan was discussed with the patient, and he was recommended to follow up with the PCP and Cardiology within one week after discharge. The patient was prescribed colchicine 0.6 mg for 3 months and ibuprofen as needed. Consults/Reason for consult Cardiology: For the possible ACS Operations or Procedures [place] [address] Ph: [phone] DIAGNOSTIC IMAGING Diagnostic Imaging Report : [id number] Signed PATIENT: NATALYA HOLCOMBT: [id number] UNIT: [id number] : 2005 LOC: [facility] ROOM / BED: [facility]6T / B AGE / SEX: 19 / M ADM STATUS: ADM IN SERVICE 3 ORDERING PHYSICIAN: PATRICA RAMOS PROCEDURE(s): CX2CT - CHEST WITHOUT CONTRAST REASON: Pneumonia ORDER NUMBER(s): [id number], ACCESSION NUMBER(s): [id number] Procedure: CT CHEST WITHOUT CONTRAST Reason for study/Clinical History: Pneumonia Comparison Study: None available at time of dictation. Exam Date: 03/10/2024 08:23 AM TECHNIQUE: Multidetector CT of the chest was performed from the lung apices to the upper abdomen without the use of intravenous contract. Axial, coronal and sagittal multiplanar reformats were performed. Radiation Dose Information: CT Dose: CTDI volume is 6.52 mGy. Dose-length product is 249.08 mGy*cm The dose indicators for CT are the volume Computed Tomography (CT) Dose Index (CTDIvol) and the Dose Length Product (DLP), and are measured in units of mGy and mGy-cm, respectively. These indicators are not patient dose, but values generated from the CT scanner acquisition factors. The report includes radiation exposure data for exposures received during this examination. FINDINGS: Lower neck: Normal thyroid. Lungs: No focal consolidation, pleural effusion or pneumothorax. Heart/Vascular Structures: Normal heart size. No pericardial effusion. Lymph Nodes: No adenopathy Pleura: No pleural effusion or significant pneumothorax. Musculoskeletal: Levoscoliosis of the upper thoracic spine Soft tissues: Normal. Upper abdomen: Limited portions of the upper abdomen are unremarkable. IMPRESSION: 1. No acute intrathoracic abnormality. Radiation optimization: All CT scans at this facility use at least one of these dose optimization techniques: automated exposure control mA and/or kV adjustment per patient size (includes targeted exams where dose is matched to clinical indication) or iterative reconstruction. HS:Y ATED BY: VALENTINO WHELAN MD DICTATED DATE/TIME: 03/10/24854 SIGNED BY: VALENTINO WHELAN MD SIGNED DATE/TIME: 03/10/24854 CC: [place] [address] Ph: [phone] DIAGNOSTIC IMAGING Diagnostic Imaging Report : [id number] Signed PATIENT: NATALYA HOLCOMBT: [id number] UNIT: [id number] : 2005 LOC: [facility] ROOM / BED: [address] [place] [address] AGE / SEX: 19 / M ADM STATUS: ADM IN SERVICE 26 ORDERING PHYSICIAN: PATRICA RAMOS RESIDENT PROCEDURE(s): ECIDC - ECHO 2D MODE CARDIAC DOP REASON: chest pain ORDER NUMBER(s): [id number], ACCESSION NUMBER(s): [id number] APPROVED REPORT EXAM: Two-dimensional and M-mode echocardiogram with Doppler and color Doppler. Blood Pressure: 110/71 mmHg INDICATION Chest Pain RISK FACTORS Height: 5' 9", Weight: 227 DIMENSIONS LVDd 5.0 (3.8-5.7cm) LA (2D) 4.5 (1.9-4.0cm) Aortic Root 3.5 (2.0- 3.7cm) LVDs 3.2 (2.5-4.0cm) LA (MM) (1.9-4.0cm) Aortic Cusp Exc 2.0 (1.5- 2.0cm) EF (%) 66.0 (55-70%) Rt. Atrium 5.4 (1.9-4.0cm) Asc. Aorta cm IVSd 1.0 (0.7-1.1cm) RV (D) (1.8-2.4cm) PWd 1.0 (0.7-1.1cm) Mitral Valve Mitral Mitral Stenosis E wave 0.90m/s MV Mean GR. mmHg A wave 0.50m/s MV Peak GR. mmHg E/A ratio 1.8 2D MVA cm2 Aortic Valve Aortic Valve Aortic Stenosis V1 0.90m/s AO Mean GR. 3mmHg V2 1.20m/s AO Peak GR. 6mmHg LVOT Diameter 2.3 (1.8-2.4cm) Doppler SHITAL 3.11cm2 Pulmonic Valve V2 1.30m/s Conclusion Normal left ventricular size and dimension. Normal left ventricular systolic function estimated ejection fraction 55%. Normal diastolic function. Normal right ventricular size and dimension. Normal right ventricular systolic function. Normal biatrial size and dimension. Normal aortic valve structure and function. Normal mitral valve structure and function. Normal tricuspid valve structure and function. The pulmonary valve is grossly normal. No pericardial effusion. SIGNED BY: MICAELA VILLAGRAN MD SIGNED DATE/TIME: 03/11/24 8132 CC: Condition at Discharge: Good Final Diagnosis/Problems List Chest pain due to pericarditis Ruled out ACS Sinus bradycardia without AV block or pauses Syncope due to Vasovagal episode Cannabinoid use disorder Ruled out pneumonia Vitamin D deficiency Hyperchloremia Discharge Disposition: Home Discharge Instruct/Medications Diet: Regular Activity: No Restrictions, As Tolerated Follow Up/Referral: follow up with the PCP rica one week after discharge follow up with the cardiology within on eweek after discharge Medications: Colchicine Ibuprofen Discharge Statement: "Patient was advised to return to the ER or call 911 if any headaches, dizziness, shortness of breath, chest pain, abdominal pain, bleeding, fevers, or worsening of medical condition. Patient was counseled about treatment plan, medications, possible side effects, patientverbalized understanding. All questions were answered to the best of my ability. This discharge took greater then 30 minutes in planning, reviewing documentation, counseling the patient, and discussing with other team members." ASSESSMENT ASSESSMENT Assessment Date of Service: Mar 11, 2024 Billing Provider: PRANAY GOMEZ MD Common Visit Codes: 68695-PSQ/OBS DISCH DAY >30min REBAMONA WALLACERUPA RESDIENT Mar 11, 2024 20:40 PRANAY GOMEZ MD Mar 12, 2024 10:14
== END 2024-03-11 22:02 | disposition home or self-care (01) | DRG 316 ==
LOC: ER 15:56 → EDBD 15:56 → TELE 21:27 → TELE-WESTW 23:52
PROVIDERS: ADMIT Internal Medicine; ATTEND Internal Medicine
DX: I31.9 Disease of pericardium, unspecified (principal); E55.9 Vitamin D deficiency, unspecified; R00.1 Bradycardia, unspecified; E87.8 Other disorders of electrolyte and fluid balance, not elsewhere classified; Z20.822 Contact with and (suspected) exposure to COVID-19; R55 Syncope and collapse
CPT/HCPCS: 36415; 71045; 71250; 80048; 80053; 80307; 81001; 82306; 82607; 83880; 84443; 84484; 85025; 85652; 86141; 87081; 87426; 87804; 93005; 93306; 99291; G0378; J1885

== ENCOUNTER 2024-05-07 11:57 | Emergency (ER) | payer OTHER ==
[~2024-05-07 11:57] MED LIST: COLC1CAP PO; ERGO1CAP23 PO; IBU600T PO; IBUP1TAB4 PO; PANT40T PO
== END 2024-05-07 12:33 | disposition left against medical advice (07) ==
LOC: ER 11:57
DX: Z00.8 Encounter for other general examination (principal); Z53.21 Procedure and treatment not carried out due to patient leaving prior to being seen by health care provider